=== PATIENT | female | born 1945 | race Caucasian/White ===

== ENCOUNTER 2025-05-18 17:34 | Emergency (ER) | payer MEDICARE, OTHER, SELFPAY ==
[2025-05-18 17:40] VITALS: BP 178/110
[2025-05-18 18:23] LABS: Hematocrit 38.5 % (37.0-47.0); Hemoglobin 12.9 g/dL (12.0-16.0); Mean Corp Hgb Conc. 33.5 g/dL (33.0-37.0); Mean Corpuscular Volume 91.7 fL (81.0-99.0); Nucleated Red Blood Cells % 0 %; Platelet Count 208 10^3/uL (130-400); Red Cell Dist. Width 13.1 % (11.5-14.5)
[2025-05-18 18:37] LABS: ALT (SGPT) 19 U/L (0-35); AST (SGOT) 23 U/L (14-36); Albumin 4.3 g/dl (3.5-5.0); Alkaline Phosphatase 77 U/L (38-126); Blood Urea Nitrogen 13 mg/dl (7-17); Calcium 9.4 mg/dl (8.4-10.2); Carbon Dioxide 27 mmol/L (22-30); Chloride 101 mmol/L (98-107); Glucose 104 mg/dl (70-99); Lipase 65 U/L (23-300); Potassium 3.9 mmol/L (3.5-5.1); Sodium 132 mmol/L (135-145); Total Protein 6.9 g/dl (6.3-8.2); eGFR > 60.00
[2025-05-18] MEDS: TORADOL 15 MG IV (18:55)
--- NOTE | 2025-05-18 19:04 | ED.GENMED ---
History of Present Illness
General
Chief Complaint: Abdominal Pain
Source: patient
Exam Limitations: none
Time Seen by Provider: 05/18/25 18:01
Nursing documentation reviewed up to this point in time: agreed with
History of Present Illness
History of Present Illness:
Patient is an 80-year-old female who presents to the emergency department for evaluation of right upper abdominal pain. Patient states that she has been noticing intermittent pain in her right upper abdomen, more noticeable after eating over the
past few weeks. However, pain seem much more intense last night. She describes a pain in her right upper abdomen which does wrap around into her back. She states that symptoms began yesterday evening after eating chicken noodle dylon and a turkey
and man wrap. She states that last night was a 'rough night'. Her pain has been relatively constant since it began yesterday prompting visit to her primary care provider. Her PCP recommended evaluation in the emergency department for urgent
abdominal ultrasound to rule out gallstones.
Patient denies any fever or chills. She has not had any nausea or vomiting. She denies any chest pain, shortness of breath or difficulty breathing.
Patient denies any inciting injuries or trauma.
Patient denies any recent travel or recent surgeries. No personal or family history of blood clots/clotting disorders.
Past History
Past History
ED Past Medical History: None
ED Past Surgical History: Gynecological (Uterus removed.) and Orthopedic
Social History
Tobacco: Non-smoker
Alcohol: Occasional
Personal:
Living: with family
Employment: Employed ([employer])
Review of Systems
Review of Systems
Allergies reviewed?: Yes
All Other Systems: ROS reviewed and negative except as documented in HPI and ROS
Phy Exam
Physical Exam
Physical Exam:
Vitals: Hypertensive, otherwise vital signs stable. Afebrile
General: Patient is well appearing, no acute distress. Nontoxic appearing
Skin: Warm and dry, no rashes or lesions
Head: Normocephalic, atraumatic
Eyes: Sclera nonicteric.
Throat: Protecting airway
Neck: Normal ROM, no cervical spine tenderness, no meningismus
Cardiac: Regular rate and rhythm, no murmurs.
Pulm: Normal respiratory effort. Lungs clear bilaterally
Abdomen: Abdomen soft. Area of very mild focal tenderness in right upper quadrant without rebound or guarding. Negative Watkins sign. No tenderness McBurney's point.
Extremities: No evidence of cyanosis or edema. Palpable distal pulses bilaterally
Neuro: AAOx3. Grossly intact
Psychiatric: Normal affect.
Course
Orders/Labs/Results
Orders:
Orders
05/18/25 18:16
Complete Blood Count/With Diff Urgent
Comprehensive Metabolic Panel Urgent
Lipase Urgent
05/18/25 18:22
0.9% Sodium Chloride 1000 ml [Nss] 1,000 ml IV BOLUS
Ketorolac [Toradol] 15 mg IV NOW STA
05/18/25 18:34
Ketorolac [Toradol] 15 mg IV NOW STA
US Abdomen Complete/Upper Urgent
Comment:
Reason For Exam: RUQ pain
05/18/25 18:58
Urinalysis Reflex To Culture Urgent
Date Specimen was Collected: 05/18/25
Time Specimen was Collected: 18:35
Urine Microscopic Reflex Cult Urgent
Urine Culture Urgent
AUREA Source: U
Specimen Description:
Date Specimen was Collected: 05/18/25
Time Specimen was Collected: 18:35
05/18/25 21:27
CT Abd/pelvis Wo Iv Cont Urgent
Reason For Exam: RUQ pain
0.9% Sodium Chloride 500 ml [Nss] 500 ml IV BOLUS
Abnormal Lab Results
05/18/25 05/18/25
18:16 18:58
Sodium 132 L mmol/L
(135-145)
Glucose 104 H mg/dl
(70-99)
Leukocyte Esterase Rfl 1+ A
(Negative)
Urine Bacteria (Reflex) Few A
(Negative)
05/18/25 18:16
05/18/25 18:16
Vital Signs
Initial and Last Documented VS:
Initial Vital Signs
Temp Pulse Resp BP Pulse Ox
98.5 F 81 18 178/110 98
05/18/25 17:40 05/18/25 17:40 05/18/25 17:40 05/18/25 17:40 05/18/25 17:40
Last Documented Vital Signs
Temp Pulse Resp BP Pulse Ox
98.5 F 80 18 185/98 99
05/18/25 17:40 05/18/25 23:09 05/18/25 23:09 05/18/25 23:09 05/18/25 23:09
MDM/Problems Addressed
Differential Diagnosis Includes:
Not limited to: Biliary colic, acute cholecystitis, choledocholithiasis, pancreatitis, GERD, muscular strain, etc.
MDM/Problems Addressed:
80 year-old female with right upper quadrant abdominal pain. Noticed intermittent symptoms over the past few weeks, occasionally postprandial, however constant since last night. No associated fever, vomiting, chest pain, shortness of breath. No
known trauma.
Vitals stable. On exam, patient appears very well and in no distress. Abdomen is soft with area of focal mild tenderness in right upper abdomen Negative Watkins sign. No CVA tenderness. Cardio/pulmonary assessment unremarkable.
Differential as above. Will check labs and abdominal US. Will give Toradol and reassess.
Update: Labs without clinically significant abnormalities. No leukocytosis. LFTs normal. Abdominal ultrasound shows no evidence of shadowing calculi or radiologic findings consistent with acute cholecystitis. Shared decision making was utilized and
plan was made to proceed with further imaging with CT scan given duration of symptoms. Of note- Toradol did improve her pain.
Patient supposedly has an anaphylactic allergy to IV contrast eye, and CT was performed without contrast without any acute abnormalities noted.
Lengthy work up in emergency department negative. She remains well appearing and in no distress. Her pain has improved. Feel stable for discharge home with continued follow-up outpatient w/ PCP. Advised bland diet, Tylenol/Motrin. Very strict return
precautions discussed. She may require additional imaging/ HIDA scan if symptoms persist.
Chronic conditions affecting care:
N/A
Acute Exacerbation and/or Progression of Chronic Illness:
N/A
*Radiology
Radiology exam reviewed: radiology read reviewed
*Pulse Oximetry
SaO2: 98
Oxygen Mode of Delivery: Room air
Patient hypoxic: no
*EKG
Interpreted by ED Provider?: NA
*Supervisor [employer] Interpretation
Rate: Supervisor [employer]- N/A
*Critical Care Note
Total Time (30-74mins, 75-104mins- exclusive of procedures): Not Applicable
ED Attending Note
-
Portions of this chart may have been created with voice recognition software.� Occasional wrong word or��sound alike� substitutions may have occurred due to the inherent limitations of voice recognition software.
Discharge Plan
Departure
Patient Disposition: Home (Routine Discharge)
Date of Disposition: 05/18/25
Time of Disposition: 22:59
Patient with high blood pressure during this ER visit?: Yes
Condition: Good
Discharge Problem:
Abdominal pain
Instructions: Abdominal Pain, BLOOD PRESSURE
Prescriptions:
No Action
hydrocodone-acetaminophen 1 TABLET tablet
1 tab PO Q4HPRN PRN (Reason: pain) Qty: 20 0RF
Referrals:
India Castro DO [Family Provider, Family Practice] - Follow up in 5-7 days
Activity Restrictions/Additional Instructions:
RETURN TO THE EMERGENCY DEPARTMENT ANY FEVER, CHILLS, PERSISTENT/WORSENING ABDOMINAL PAIN, CHEST PAIN OR SHORTNESS OF BREATH, SEVERE BACK PAIN, INTRACTABLE VOMITING, WORSENING IN CURRENT SYMPTOMS, OR ANY OTHER CONCERNS
- As discussed your lab work, urinalysis, abdominal ultrasound, and CT scan showed no acute abnormalities today.
- We are unsure the cause of your abdominal pain. Please continue to take Tylenol and/or Motrin as needed. I would recommend a bland diet.
- Continue to follow-up with your primary care provider for further evaluation/management to ensure that your symptoms are improving
Monitor your symptoms closely and return to the emergency department with any acute worsening/new symptoms or any other concerns
Interventions
Interventions:
*Risk Screen - Suicide Last Done: 05/18/25 17:40
*General Assessment Last Done: 05/18/25 17:40
*Neglect/Abuse Screening Last Done: 05/18/25 17:40
*ED COVID-19 Vaccine History Last Done: 05/18/25 22:17
*ED Influenza Vaccine History Last Done: 05/18/25 22:17
[facility] Fall Risk Assessment Tool Last Done: 05/18/25 21:36
*Nursing Disposition Last Done: 05/18/25 23:10
OZ-[id number]-Qaqpqoqoan Assessment Last Done: 05/18/25 19:12
Discharge Date and Time
Discharge Date/Time: 05/18/25 23:11
Print Language: IRANIAN
[2025-05-18 19:07] LABS: Urine Character Clear (Clear)
[2025-05-18 19:16] LABS: Urine Red Blood Cell 0-2 /HPF (0-2); Urine Squamous Cell 0-2 /LPF (Few)
[2025-05-18] MEDS: NSS 500 IV (21:33)
[2025-05-18 23:09] VITALS: BP 185/98
== END 2025-05-18 23:11 | disposition home or self-care (01) ==
LOC: EMR 17:34
PROVIDERS: Emergency Medicine; Physician Assistant; EMERGENCY PHYSICIAN Emergency Medicine; FAMILY PHYSICIAN Family Medicine
DX: R10.11 Right upper quadrant pain (principal); Z91.041 Radiographic dye allergy status
CPT/HCPCS: 96374; 99284; 74176; 76700; 80053; 81003; 81015; 83690; 85025; 87086